=== PATIENT | male | born 1955 | race Caucasian/White ===

== ENCOUNTER 2020-03-29 15:11 | Outpatient (CLI) | payer OTHER ==
[~2020-03-29 15:11] MED LIST: PRILOSEC20 MG PO; XANAX0.25 MG PO
== END 2020-03-29 18:00 | disposition home or self-care (01) ==
LOC: LAB 15:11
DX: Z03.818 Encounter for observation for suspected exposure to other biological agents ruled out (principal)

== ENCOUNTER → 2021-03-26 | Outpatient (CLI) | payer OTHER | END | disposition home or self-care (01) | LOC: ASH CLINIC 16:00 | PROVIDERS: ATTEND Emergency Medicine | DX: U07.1 COVID-19 (principal); Z23 Encounter for immunization ==

== ENCOUNTER 2021-07-24 08:00 | Outpatient (CLI) | payer OTHER | END 2021-07-24 08:30 | disposition home or self-care (01) | LOC: PPH VACUNA 08:00 | PROVIDERS: ATTEND Emergency Medicine Pediatric Emergency Medicine | DX: Z23 Encounter for immunization (principal) ==

== ENCOUNTER → 2021-10-18 | Outpatient (CLI) | payer OTHER | END | disposition home or self-care (01) | LOC: NUCLEAR 10:51 | PROVIDERS: ATTEND Internal Medicine Cardiovascular Disease | DX: I82.4Z3 Acute embolism and thrombosis of unspecified deep veins of distal lower extremity, bilateral (principal); I73.9 Peripheral vascular disease, unspecified ==